=== PATIENT | female | born 1990 | race Caucasian/White ===

== ENCOUNTER 2025-05-23 19:46 | Emergency (ER) | payer OTHER, SELFPAY ==
[2025-05-23 19:48] VITALS: BP 154/115
--- NOTE | 2025-05-23 22:03 | ED.GENMED ---
History of Present Illness
General
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
Source: patient
Exam Limitations: none
Time Seen by Provider: 05/23/25 21:31
History of Present Illness
History of Present Illness:
34yoF presenting for suspected retained tampon. Patient believes that she has a tampon stuck since January because she does not recall removing it. She has a prior history of a retained tampon that was in place for several months before it fell
out. She reports intermittent odors and checked her vaginal pH earlier today with an at home test and it was reportedly 'off.' She was seen by her PCP yesterday who did a speculum exam and did not see any foreign bodies. Patient feels that the
exam was rushed and would like to be checked again. She denies any pelvic pain or fevers. LMP was last week. She denies concern for STDs.
Past History
Past History
ED Past Medical History: Psychiatric (Depression, ADHD) and Other (denies any previous head injury. Denies history of headaches.)
ED Past Surgical History: Gynecological (Tubal ligation, breast implants)
Social History
Tobacco: Non-smoker
Alcohol: Occasional
Drug: None
Personal: Single
Living: with family (three children)
Employment: Employed (kitchen at [employer])
Family History
Family History: Negative Diabetes
Phy Exam
General Physical Exam
General Presentation: well appearing and no apparent distress
General age: appears stated age
General Skin: warm and dry
General Habitus: normal
General Mental: alert
ENT Exam
ENT Exam: normocephalic
Pulmonary Exam
Pulmonary Exam: no respiratory distress
Gastrointestinal Exam
Gastrointestinal Exam: non tender, soft and non distended
Genitourinary Exam Female
Exam Female: vaginal discharge and other (Small to moderate amount of whitish discharged noted on speculum exam. Cervix normal appearing. No visualized tampon and no tampon palpated on bimanual exam. No CMT.)
Neurological Exam
Neurological Exam: alert
[place] Coma Scale
Eye Opening: Spontaneous
Verbal Response: Oriented
Motor Response: Obeys Commands
GCS Total Score: 15
Skin Exam
Skin Exam: normal color and warm/dry
Psychiatric Exam
Psychiatric Exam: normal mood/affect
Course
Orders/Labs/Results
Orders:
Orders
05/23/25 22:03
Chlamydia/GC by PCR Urgent
MYRTLE Source: Endo-Cervical
Specimen Description:
Source:: ENDOCERVICAL
Date Specimen was Collected: 05/23/25
Time Specimen was Collected: 22:02
Trichomonas - Wet Prep Urgent
MYRTLE Source: Vagina
Specimen Description:
Date Specimen was Collected: 05/23/25
Time Specimen was Collected: 22:02
05/23/25 22:24
Add On - Microbiology Urgent
Tests Added?: genital culture
05/23/25 22:27
MetroNIDAZOLE [Flagyl] 500 mg PO NOW STA
Vital Signs
Initial and Last Documented VS:
Initial Vital Signs
Temp Pulse Resp BP Pulse Ox
98.2 F 109 18 154/115 100
05/23/25 19:48 05/23/25 19:48 05/23/25 19:48 05/23/25 19:48 05/23/25 19:48
Last Documented Vital Signs
Temp Pulse Resp BP Pulse Ox
98.2 F 109 20 154/115 100
05/23/25 19:48 05/23/25 19:48 05/23/25 22:11 05/23/25 19:48 05/23/25 22:05
MDM/Problems Addressed
Differential Diagnosis Includes:
34yoF here with suspected retained tampon for several months. States her vaginal pH is off and she is having discharge. Seen by PCP yesterday and had negative exam but she feels this was rushed. Whitish vaginal discharged noted on speculum exam. No
visualized FB noted. No clinical signs of PID.
Vaginal swabs collected and sent to lab. Initially ordered a vaginitis swab as patient is worried about BV. Lab called after pelvic exam complete stating that the vaginitis panel was done with an incorrect swab. Offered to repeat swab vs. empiric
treatment for BV and patient prefers empiric treatment. She was started on a course of Flagyl. Advised f/u with OBGYN and ED return precautions reviewed.
*Pulse Oximetry
SaO2: 100
Oxygen Mode of Delivery: Room air
Patient hypoxic: no
*Critical Care Note
Total Time (30-74mins, 75-104mins- exclusive of procedures): Not Applicable
ED Attending Note
-
Portions of this chart may have been created with voice recognition software.� Occasional wrong word or��sound alike� substitutions may have occurred due to the inherent limitations of voice recognition software.
Discharge Plan
Departure
Patient Disposition: Home (Routine Discharge)
Date of Disposition: 05/23/25
Time of Disposition: 22:11
Patient with high blood pressure during this ER visit?: Yes
Discharge Problem:
Encounter for observation for suspected inserted (injected) foreign body ruled out, Vaginal discharge
Instructions: Vaginal discharge
Prescriptions:
New
metronidazole 500 mg tablet
500 mg PO BID 7 Days Qty: 13 0RF
No Action
dextroamphetamine-amphetamine [Adderall] 30 MG tablet
30 mg PO BID
lamotrigine [Lamictal] 25 MG tablet
50 mg PO DAILY
famotidine [Pepcid] 40 MG tablet
40 mg PO DAILY 30 Days Qty: 30 0RF
Referrals:
Akin Uriostegui MD [Active, Gynecology]
Shekhar Hinojosa DO [Family Provider, Family Practice]
Activity Restrictions/Additional Instructions:
Take Flagyl as prescribed. Do not drink alcohol while taking this antibiotic.
We will call you if your vaginal swabs are positive.
Please follow-up with gynecology. Return to the ER with any worsening symptoms including fevers or pelvic pain.
Interventions
Interventions:
*Risk Screen - Suicide Last Done: 05/23/25 19:51
*General Assessment Last Done: 05/23/25 19:51
*Neglect/Abuse Screening Last Done: 05/23/25 19:51
*ED COVID-19 Vaccine History Last Done: 05/23/25 19:51
*ED Influenza Vaccine History Last Done: 05/23/25 19:51
[facility] Fall Risk Assessment Tool Last Done: 05/23/25 22:11
*Nursing Disposition Last Done: 05/23/25 22:33
ED-Female Genitourinary Assessment Last Done: 05/23/25 22:11
Discharge Date and Time
Discharge Date/Time: 05/23/25 22:33
Print Language: ROMANIAN
[2025-05-23] MEDS: FLAGYL 500 MG PO (22:30)
== END 2025-05-23 22:33 | disposition home or self-care (01) ==
LOC: EMR 19:46
PROVIDERS: EMERGENCY PHYSICIAN Emergency Medicine; FAMILY PHYSICIAN Family Medicine
DX: Z03.823 Encounter for observation for suspected inserted (injected) foreign body ruled out (principal); R03.0 Elevated blood-pressure reading, without diagnosis of hypertension; F90.9 Attention-deficit hyperactivity disorder, unspecified type; F32.A Depression, unspecified
CPT/HCPCS: 99283; 87070; 87210; 87491; 87591